=== PATIENT | female | born 1985 | race African-American/Black ===

== ENCOUNTER 2018-09-16 13:10 | Outpatient (CLI) | payer OTHER | END 2018-09-16 13:15 | disposition home or self-care (01) | LOC: LAB 13:10 | DX: C50.212 Malignant neoplasm of upper-inner quadrant of left female breast (principal); I10 Essential (primary) hypertension ==

== ENCOUNTER 2018-09-18 09:35 | Outpatient (CLI) | payer OTHER | END 2018-09-18 09:38 | disposition home or self-care (01) | LOC: TOM 09:35 | DX: C50.212 Malignant neoplasm of upper-inner quadrant of left female breast (principal) | CPT/HCPCS: 71270; 74178; Q9965 ==

== ENCOUNTER → 2018-09-26 | Outpatient (CLI) | payer OTHER | END | disposition home or self-care (01) | LOC: NUCLEAR 13:00 | DX: C50.212 Malignant neoplasm of upper-inner quadrant of left female breast (principal); M81.0 Age-related osteoporosis without current pathological fracture ==

== ENCOUNTER 2018-10-28 12:58 | Outpatient (CLI) | payer OTHER | END 2018-10-28 14:00 | disposition home or self-care (01) | LOC: LAB 12:58 | DX: D50.8 Other iron deficiency anemias (principal); C50.212 Malignant neoplasm of upper-inner quadrant of left female breast; R94.5 Abnormal results of liver function studies; I88.0 Nonspecific mesenteric lymphadenitis; D51.8 Other vitamin B12 deficiency anemias; K90.89 Other intestinal malabsorption ==

== ENCOUNTER 2018-12-05 10:11 | Outpatient (CLI) | payer OTHER | END 2018-12-05 10:20 | disposition home or self-care (01) | LOC: LAB 10:11 | DX: I88.0 Nonspecific mesenteric lymphadenitis (principal); R94.09 Abnormal results of other function studies of central nervous system; C50.212 Malignant neoplasm of upper-inner quadrant of left female breast; I10 Essential (primary) hypertension; D50.8 Other iron deficiency anemias ==

== ENCOUNTER 2018-12-24 10:02 | Outpatient (CLI) | payer OTHER | END 2018-12-24 10:06 | disposition home or self-care (01) | LOC: TOM 10:02 | DX: C50.212 Malignant neoplasm of upper-inner quadrant of left female breast (principal); R94.5 Abnormal results of liver function studies; I88.0 Nonspecific mesenteric lymphadenitis; K75.89 Other specified inflammatory liver diseases | CPT/HCPCS: 74160; Q9965 ==

== ENCOUNTER 2018-12-31 12:47 | Outpatient (CLI) | payer OTHER | END 2018-12-31 13:09 | disposition home or self-care (01) | LOC: LAB 12:47 | DX: C50.212 Malignant neoplasm of upper-inner quadrant of left female breast (principal); R94.5 Abnormal results of liver function studies; I88.0 Nonspecific mesenteric lymphadenitis; K75.89 Other specified inflammatory liver diseases; R97.0 Elevated carcinoembryonic antigen [CEA]; R97.8 Other abnormal tumor markers ==

== ENCOUNTER 2019-01-16 10:01 | Outpatient (CLI) | payer OTHER | END 2019-01-16 10:06 | disposition home or self-care (01) | LOC: LAB 10:01 | DX: C50.212 Malignant neoplasm of upper-inner quadrant of left female breast (principal); R94.5 Abnormal results of liver function studies; I88.0 Nonspecific mesenteric lymphadenitis; K75.89 Other specified inflammatory liver diseases ==

== ENCOUNTER → 2019-03-24 14:12 | Outpatient (CLI) | payer OTHER | END | disposition home or self-care (01) | LOC: LAB 14:12 | DX: D50.8 Other iron deficiency anemias (principal); R94.5 Abnormal results of liver function studies; I88.0 Nonspecific mesenteric lymphadenitis; K75.89 Other specified inflammatory liver diseases ==

== ENCOUNTER → 2019-06-27 09:37 | Outpatient (CLI) | payer OTHER | END | disposition home or self-care (01) | LOC: LAB 09:37 | DX: D50.8 Other iron deficiency anemias (principal); I10 Essential (primary) hypertension; C50.212 Malignant neoplasm of upper-inner quadrant of left female breast; D72.818 Other decreased white blood cell count; R94.5 Abnormal results of liver function studies; I88.0 Nonspecific mesenteric lymphadenitis; K75.89 Other specified inflammatory liver diseases; D51.8 Other vitamin B12 deficiency anemias; E55.9 Vitamin D deficiency, unspecified; E03.8 Other specified hypothyroidism; E78.2 Mixed hyperlipidemia; R97.0 Elevated carcinoembryonic antigen [CEA]; R97.8 Other abnormal tumor markers ==